=== PATIENT | female | born 1935 | race Caucasian/White ===

== ENCOUNTER 2017-04-15 12:58 | Inpatient (IN) ==
[2017-04-15 13:48] LABS: MANUAL DIFF NEEDED? NO
[2017-04-15 13:49] LABS: BASO% 0.4 % (0.0-0.8); EOS# 0.25 X1000 (0.0-0.7); EOS% 2.5 % (0.0-10.0); HEMATOCRIT 38.6 % (37.0-47.0); HEMOGLOBIN 12.3 g/dL (12.0-16.0); IMM GRAN# 0.02 X1000 (0.0-0.04); IMM GRAN% 0.2 % (0.0-0.5); LYMPH# 0.97 X1000 (1.2-3.4); LYMPH% 9.7 % (20.5-51.1); MCH 32.4 PG (27-31); MCHC 31.9 g/dL (33-37); MCV 101.6 FL (81-99); MONO# 0.82 X1000 (0.11-0.59); MONO% 8.2 % (1.7-9.3); MPV 10.2 FL (7.4-10.4); PLT 207 X1000 (130-400)
[2017-04-15 14:05] LABS: INR 1.03 (0.86-1.15); PROTIME 13.8 Seconds (12.1-15.5)
[2017-04-15 14:06] LABS: PTT PL 63.8 Seconds (22.6-43.9)
[2017-04-15 14:17] LABS: ALBUMIN 3.7 g/dL (3.5-5.0); TOTAL BILIRUBIN 0.4 mg/dL (0.20-1.00); TOTAL PROTEIN 6.6 g/dL (6.3-8.3)
[2017-04-15 14:24] LABS: POTASSIUM 7.4 mmol/L (3.5-5.1)
[2017-04-15 14:33] LABS: BE -1.5 mmoll (-3.0-3.0); BLOOD TYPE ARTERIAL; DRAW SITE R BRACHIAL; METHB 1.3 % (0.0-1.5); O2(CT) 16.4 mL/dL (15.0-23.0); PCO2(98.6) 50 mmHg (35-45); PO2(98.6) 93 mmHg (60-100); SAMPLE BLOOD; SAO2 98.7 % (95.0-100.0); THB 12.2 g/dL (11.5-17.4); pH(98.6) 7.31 (7.35-7.45)
[2017-04-15 14:45] LABS: ALLEN TEST NO; MODALITY CANNULA
[2017-04-16 06:29] LABS: MANUAL DIFF NEEDED? NO
[2017-04-16 06:46] LABS: CALCIUM 9.9 mg/dL (8.8-10.2); POTASSIUM 5.6 mmol/L (3.5-5.1)
[2017-04-16 07:07] LABS: BASO% 0.4 % (0.0-0.8); EOS% 3.2 % (0.0-10.0); HEMATOCRIT 41.1 % (37.0-47.0); IMM GRAN# 0.02 X1000 (0.0-0.04); IMM GRAN% 0.2 % (0.0-0.5); LYMPH# 0.94 X1000 (1.2-3.4); MCH 32.2 PG (27-31); MCHC 31.6 g/dL (33-37); MCV 101.7 FL (81-99); MONO# 0.86 X1000 (0.11-0.59); MONO% 9.2 % (1.7-9.3); MPV 10.4 FL (7.4-10.4); PLT 215 X1000 (130-400); RBC 4.04 XMIL (4.2-5.4)
[2017-04-16 07:15] LABS: VITAMIN D 25 HYDROXY 22.8 NG/DL
[2017-04-16 12:55] LABS: URINE CULTURE NEEDED? NO; URINE MICRO REVIEW NEEDED? NO; URINE SOURCE CLEAN CATCH
[2017-04-16 13:06] LABS: BILIRUBIN URINE NEGATIVE (NEGATIVE); BLOOD URINE NEGATIVE (NEGATIVE); COLOR YELLOW; GLUCOSE URINE NEGATIVE (NEGATIVE); LEUKOCYTES URINE NEGATIVE (NEGATIVE); NITRITE URINE NEGATIVE (NEGATIVE); PROTEIN URINE TRACE mg/dL (NEGATIVE); SP GRAVITY URINE 1.016; TURBIDITY URINE CLEAR (CLEAR); UROBILINOGEN URINE NORMAL (NORMAL)
[2017-04-16 13:07] LABS: UR EPITHELIAL CELLS <10 /HPF (<10); URINE BACTERIA NEGATIVE /HPF; URINE RBC <10 /HPF (<10); URINE WBC <10 /HPF (<10)
[2017-04-16 16:56] LABS: CALCIUM 8.9 mg/dL (8.8-10.2); POTASSIUM 5.3 mmol/L (3.5-5.1)
[2017-04-17 06:13] LABS: CALCIUM 8.7 mg/dL (8.8-10.2); POTASSIUM 4.9 mmol/L (3.5-5.1)
[2017-04-18 06:13] LABS: CALCIUM 9.3 mg/dL (8.8-10.2); POTASSIUM 4.3 mmol/L (3.5-5.1)
[2017-04-19 11:05] VITALS: BP 143/53
== END 2017-04-19 15:55 | disposition home health service (06) ==
LOC: 3N 12:58 → P.ED 12:58 → OBSVTOIN 15:30 → 3S 04-16 18:16
PROVIDERS: ADMIT Internal Medicine; ATTEND Internal Medicine

== ENCOUNTER 2020-02-15 16:03 | Inpatient (IN) ==
--- NOTE | 2020-02-15 16:39 | PROVIDER DOCUMENTATION ---
HPI-Musculoskeletal Pain/Inj - GENERAL Chief Complaint: Fall Stated Complaint: FALL Time Seen by Provider: 02/15/20 16:04 Source: patient - HX OF PRESENT ILLNESS-MUSKULOSKELTAL Nature of Presenting Problem: 84 yof presents after a fall while transfering to potty chair. She reports she slipped, she denies hitting her head, denies blood thinners. She c/o pain in the R leg from the knee to the ankle worse with pain. She does have BLE edema that is chronic. She has good sensation and cap refill to the R foot and pulses are intact. Quality of Pain: reports: aching Severity in ED: moderate Onset/Duration: 1-3 hours ago Timing: still present Modifying Factors: improves with: nothing Any recent injury?: Yes Locality of Occurance: Home Similar Symptoms Previously?: No Recently seen or treated by another doctor?: No - FALL INJURY Location of Pain/Injury: reports: lower extremity (RLE) Pain Radiation: reports: no radiation Reason for Fall: reports: slipped Symptoms prior to fall:: reports: none Loss of Consciousness: no loss of consciousness Injury Associated Symptoms: reports: denies symptoms Review of Systems - Adult - REVIEW OF SYSTEMS - ADULT Constitutional: reports: no symptoms reported. denies: chills, fever Eyes: reports: no symptoms reported. denies: decreased vision, blurred vision, double vision Ears, Nose, Mouth & Throat: reports: no symptoms reported. denies: sinus problem, mouth/dental pain Cardiovascular: reports: no symptoms reported. denies: chest pain, edema, orthopnea, palpitations, PND Respiratory: reports: no symptoms reported. denies: cough, shortness of breath, wheezing Gastrointestinal: reports: no symptoms reported. denies: abdominal pain, diarrhea, nausea, vomiting Genitourinary: reports: no symptoms reported. denies: dysuria, flank pain, hematuria Musculoskeletal: reports: see HPI, bone pain, joint pain. denies: no symptoms reported, back pain, frequent leg cramps, joint swelling, muscle aches, muscle weakness, neck pain, other Integumentary: reports: see HPI. denies: no symptoms reported, hives, hair loss, itching, mole changes, nail changes, rash, skin sores/ulcer, skin thickening, other Neurological: reports: no symptoms reported. denies: see HPI, ataxia, d izziness/vertigo, headache/migraines, loss of balance, numbness, paresthesia, seizure, slurred speech, syncope, tremors, other Psychiatric: reports: no symptoms reported. denies: see HPI, anxiety, anti- depressant use, alcohol/drug dependence, depression, emotional problems, insomnia, panic attacks, suicidal thoughts, other Endocrine: reports: no symptoms reported. denies: see HPI, change in skin pigment, excessive sweating, goiter, cold intolerance, heat intolerance, increased hunger, increased thirst, polyuria, other Hematologic/Lymphatic: reports: no symptoms reported. denies: see HPI, blood clots, easy bruising, low blood count, lymphedema, prolonged bleeding, swollen lymph nodes, transfusions, other Allergic/Immunologic: reports: no symptoms reported. denies: see HPI, allergic reactions, allergic rhinitis, asthma, eczema, food allergy, frequent infections, hay fever, hives, positive PPD, urticaria, other Past History - Adult - PAST MEDICAL HISTORY-ADULT Review of Records: reports: Nursing Assessment Review, Social history reviewed & non-contributory. 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 Endocrine/Immune: reports: anemia, Diabetes Other Conditions: reports: denies history - IMMUNIZATION STATUS Childhood Immunizations: See Nurse Assessment Flu Vaccine: See Nurse Assessment Physical Exam-Injury Related - Physical Exam-Injury Related Initial Vital Signs Reviewed: Yes General Appearance: alert, no apparent distress Eyes: PERRL/EOMI, pink conjunctivae Head, Ears, Nose, Mouth & Throat: normocephalic/atraumatic, moist mucous membranes, normal ENT inspection Neck: non-tender, full range of motion, supple, normal inspection Respiratory: chest non-tender, lungs clear, normal breath sounds, no pleuratic chest pain, no respiratory distress, no accessory muscle use Cardiovascular: normal peripheral pulses, regular rate, rhythm, systolic murmur. negative: no edema (BLE +1) Peripheral Pulses: radial (R): 2+, radial (L): 2+ Abdominal Exam: normal bowel sounds, non tender, soft, no organomegaly, no pulsatile mass Female Genitalia/Pelvic Exam: deferred Male Genitalia: deferred Rectal Exam: deferred Hemoccult Exam: deferred Lymphatic: no adenopathy Back Exam: normal inspection, no CVA tenderness, no vertebral tenderness Extremity: swelling (BLE), tenderness (R knee, ankle). negative: normal range of motion, normal gait, pulse deficit, slow capillary refill Integumentary: normal color, warm/dry Neurologic: grossly normal Psych/Mental Status: normal mood/affect, normal thought process, oriented x 3 - [place] Coma Score Best Eye Response ([place]): (4) open spontaneously Best Verbal Response ([place]): (5) oriented Best Motor Response ([place]): (6) obeys commands Progress - PLAN OF CARE/RESULTS Progress/Plan/Lab Results: Vital Signs - 8 hr 02/15/20 16:09 Temperature 97.7 F Pulse Rate 96 H Respiratory Rate 18 Blood Pressure 169/71 O2 Sat by Pulse Oximetry 93 L Orders Category Date Time Status Misc. NRSG Communication Order DIRECTED Care 02/15/20 17:58 Active NEWS Score 2-4:Order NEWS Lactate Series NOW Care 02/15/20 16:16 Active OCL Splint DIRECTED Care 02/15/20 17:58 Active ANKLE 2 VIEWS RIGHT [RAD] Stat Exams 02/15/20 16:[address] EXT LOWER RIGHT W/O CON [CT] Stat Exams 02/15/20 17:54 Ordered FOOT COMPLETE RIGHT [RAD] Stat Exams 02/15/20 16:31 Completed KNEE 3 VIEWS RIGHT [RAD] Stat Exams 02/15/20 16:31 Completed LOWER LEG-RIGHT [RAD] Stat Exams 02/15/20 16:31 Completed cxr [CHEST-1 VIEW] [RAD] Stat Exams 02/15/20 17:00 Completed CBC WITH ELECTRONIC DIFF [HEME] Stat Lab 02/15/20 17:47 Results COMPREHENSIVE METABOLIC PANEL [CHEM] Stat Lab 02/15/20 17:47 Received PROTIME WITH INR [COAG] Stat Lab 02/15/20 17:47 Received PTT [COAG] Stat Lab 02/15/20 17:47 Received TYPE & SCREEN [BBK] Stat Lab 02/15/20 17:47 Received Morphine Med 02/15/20 17:19 Discontinued 4 mg IM NOW ONE Promethazine [Phenergan] Med 02/15/20 17:19 Discontinued 25 mg IM NOW ONE Tramadol [Ultram] Med 02/15/20 16:42 Discontinued 50 mg PO NOW ONE EKG [EKG] Stat Ther 02/15/20 17:30 Ordered Result Diagrams: 02/15/20 17:47 - EKG 1 Time of EKG reading by physician:: 17:56 EKG Read and Signed by:: Deep Brumfield EKG Interpretation (*Must complete 3 of following elements*): Abnormal Rate: 96 Rhythm: NSR [place]: normal QRS: LVH, other (OAWMI) MI Interval: normal ST Wave: non-specific ST changes Comments: HEAVY ARTIFACT PRESENT - CONSULTS/PCP/HOSPITALIST Notification #1 *Consult/PCP/Hospitalist*: DR. ALVAREZ Time Discussed: 17:32 Consult Disposition: Admit (ADMIT TO PCP) #2 Consult: DR. HENRY ON FOR DR LOVETT Time Discussed: 18:02 Consult Disposition: Admit Departure - Departure Date of Disposition Decision: 02/15/20 Time of Disposition Decision: 18:02 DIAGNOSIS: Fracture of proximal end of tibia and fibula, Fracture of distal end of tibia with fibula Disposition: ADMITTED INPATIENT 09 Certified Medical Emergency: Emergent Condition: Stable Referrals and Follow-Ups: Phuc Boss MD [Primary Care Provider] - - Critical Care Note This patient required my direct & personal management of CC.: No Attestation - Physician/ LATRELL Attestation Patient care was provided by Advanced Practice Provider:: Yes Advanced Practice Provider:: Rosaura Hsu Advanced Practice Provider documentation review:: The Mid-level provider documentation, treatment plan and medical decision making was reviewed by the physician who agrees with all treatment and medical decision making by the P. The physician spent face to face time with patient:: No Advanced Practice Provider documentation review:: Supervising physician onsite and consulted in the evaluation and care of this patient. The physician did not have a face to face encounter with the patient.
[2020-02-15] MEDS ORDERED: ULTRAM PO ONE (16:42)
--- NOTE | 2020-02-15 17:12 | Diag Imaging Result Doc PS360 ---
KNEE 3 VIEWS RIGHT - 02/15/2020 INDICATION: fall TECHNIQUE: Three views COMPARISON: None FINDINGS: There is comminuted tibial plateau fracture. This appears as a split fracture at the tibial spine, along with transverse fracture of the tibial shaft. There is also nonspecific fracture of the fibular head. IMPRESSION: Severe fractures of the proximal tibia and fibula. Electronically signed by Luca Johnson 02/15/2020 5:09 PM
--- NOTE | 2020-02-15 17:13 | Diag Imaging Result Doc PS360 ---
ANKLE 2 VIEWS RIGHT - 02/15/2020 INDICATION: fall TECHNIQUE: COMPARISON: None FINDINGS: There is spiral nondisplaced fracture of the distal fibula with overlying soft tissue swelling. There is also a fracture line through the distal tibia metadiaphysis medially. This fracture is well above the medial malleolus. No widening of the ankle mortise. IMPRESSION: Distal tibia and fibular fractures. Electronically signed by Luca Johnson 02/15/2020 5:11 PM
--- NOTE | 2020-02-15 17:13 | Diag Imaging Result Doc PS360 ---
LOWER LEG-RIGHT - 02/15/2020 INDICATION: fall TECHNIQUE: Three views COMPARISON: None FINDINGS: The shafts of the tibia and fibula are intact. IMPRESSION: No midshaft fracture. Electronically signed by Luca Johnson 02/15/2020 5:10 PM
--- NOTE | 2020-02-15 17:14 | Diag Imaging Result Doc PS360 ---
FOOT COMPLETE RIGHT - 02/15/2020 INDICATION: Fall TECHNIQUE: Three views COMPARISON: None FINDINGS: No visible fractures of the foot. IMPRESSION: No fractures of the foot. Electronically signed by Luca Johnson 02/15/2020 5:12 PM
--- NOTE | 2020-02-15 17:16 | Diag Imaging Result Doc PS360 ---
CHEST-1 VIEW - 02/15/2020 INDICATION: FALL COMPARISON: 04/15/2017 FINDINGS: Stable sternotomy wires. Stable significant cardiomegaly. Pulmonary vascularity is grossly normal. No infiltrates or edema. There are probably trace pleural effusions. IMPRESSION: Nonspecific findings. Electronically signed by Luca Johnson 02/15/2020 5:14 PM
[2020-02-15] MEDS ORDERED: PHENERGAN IM ONE (17:19)
[2020-02-15] MEDS ORDERED: MORPHINE IM ONE (17:19)
[2020-02-15 18:06] LABS: BASO# 0.12 X1000 (0.0-0.2); EOS# 0.21 X1000 (0.0-0.7); EOS% 1.8 % (0.0-10.0); HEMATOCRIT 38.6 % (37.0-47.0); HEMOGLOBIN 12.4 g/dL (12.0-16.0); IMM GRAN# 0.03 X1000 (0.0-0.04); IMM GRAN% 0.3 % (0.0-0.5); LYMPH# 0.78 X1000 (1.2-3.4); LYMPH% 6.7 % (20.5-51.1); MCH 32.3 PG (27-31); MCHC 32.1 g/dL (33-37); MCV 100.5 FL (81-99); MONO# 0.89 X1000 (0.11-0.59); MONO% 7.6 % (1.7-9.3); MPV 10.3 FL (7.4-10.4); NEUT# 9.69 X1000 (1.4-6.5); NEUT% 82.6 % (42.2-75.2); PLT 188 X1000 (130-400); RBC 3.84 XMIL (4.2-5.4); RDW 14.5 % (11.5-14.5); WBC 11.72 X1000 (4.8-10.8)
[2020-02-15 18:14] LABS: INR 1.12; PROTIME 14.6 Seconds (11.0-16.0)
[2020-02-15 18:15] LABS: PTT 51.3 Seconds (22.3-41.8)
[2020-02-15 18:17] LABS: ALB/GLOB RATIO 2.2; ALBUMIN 4.4 g/dL (3.5-5.0); CALCIUM 10.3 mg/dL (8.8-10.2); CREATININE 1.9 mg/dL (0.5-0.9); POTASSIUM 3.3 mmol/L (3.5-5.1); TOTAL BILIRUBIN 0.68 mg/dL (0.20-1.00); TOTAL PROTEIN 6.4 g/dL (6.3-8.3)
[2020-02-15] MEDS ORDERED: FENTANYL IV ONE (18:45)
[2020-02-15] MEDS ORDERED: ZOFRAN IV ONE (18:45)
--- NOTE | 2020-02-15 19:16 | Diag Imaging Result Doc PS360 ---
CT EXT LOWER RIGHT W/O CON - 02/15/2020 INDICATION: Proximal and distal Tibia Fracture TECHNIQUE: CT of the right lower leg COMPARISON: None FINDINGS: There is a nondisplaced T-type split fracture of the proximal tibia. This includes a transverse fracture at the beginning of the tibia shaft along with a longitudinal fracture extending through the tibial spine. There is a nondisplaced fracture of the proximal fibular head. Distally, there is an oblique slightly comminuted fracture of the distal fibula. There is a fracture of the distal tibia at the syndesmosis area there is also comminuted fracture through the medial malleolus. IMPRESSION: Extensive fractures at both ends of the tibia and fibula. Electronically signed by Luca Johnson 02/15/2020 7:13 PM
[2020-02-15] MEDS ORDERED: NS 1,000 ML IV SCH (20:01)
--- NOTE | 2020-02-15 20:47 | EKG Report ---
Test Performed on : 02/15/2020 5:53:39 PM Test Reason : SURG CLEARANCE Blood Pressure : / mmHG Vent. Rate : 096 BPM Atrial Rate : 097 BPM P-R Int : 000 ms QRS Dur : 108 ms QT Int : 348 ms P-R-T Axes : 000 042 042 degrees QTc Int : 439 ms Accelerated Junctional rhythm. 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
--- NOTE | 2020-02-15 21:05 | HISTORY AND PHYSICAL ---
PRIMARY CARE PHYSICIAN: Phuc Boss MD CHIEF COMPLAINT: Right lower extremity pain. HISTORY OF PRESENT ILLNESS: An 84-year-old, white female with a complicated past medical history presents for evaluation of above-mentioned symptoms. Current history of present illness began this afternoon. The patient states she was lying in bed and rachel to transfer to her bedside commode. Upon doing so, patient lost balance and fell. The patient denied loss of consciousness or head trauma. The patient's found her on the floor. Patient complained of significant right lower extremity pain. Patient's attempted to assist her in rising to the bed; however, this proved unsuccessful. Ultimately, EMS was called. The patient was transferred to the emergency department for further evaluation and management. Full evaluation was pursued. The patient was found to have extensive fractures of both ends of the tibia and fibula. Patient will be admitted to the hospital for full evaluation and management of fractures as noted. Of note, prior to this event, patient had been in her usual state of health. She denied fevers, chills, nausea, vomiting, shortness of breath, chest discomfort, dysuria, hematuria, pyuria, or change in bowel movements. PAST MEDICAL HISTORY: 1. Non insulin-dependent diabetes with associated neuropathy. 2. Hyperlipidemia. 3. Hypertension. 4. History of tobacco use. 5. History of esophageal stricture secondary to reflux disease. 6. Coronary artery disease status post coronary artery bypass grafting. 7. Aortic insufficiency. 8. Mitral valve prolapse. 9. Folate deficiency. 10. B12 deficiency. 11. Chronic pain. 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 13. Chronic kidney disease. 14. Hypothyroidism. CURRENT MEDICATIONS: 1. Vitamin B12 1000 mcg IM monthly. 2. Lasix 20 mg daily. 3. Hydralazine 25 mg 3 times daily. 4. Sublingual nitroglycerin 0.4 mg as needed. 5. Oxycodone ER 10 mg q.12 hours. 6. Temazepam 30 mg at bedtime. 7. Acyclovir 400 mg twice daily. 8. Xanax 0.25 mg twice daily. 9. Tegretol 200 mg twice daily. 10. Famotidine 20 mg at bedtime. 11. Icar C 1 tab daily. 12. Imdur 60 mg daily. 13. Labetalol 150 mg twice daily. 14. Levothyroxine 75 mcg daily. 15. Multivitamin daily. 16. MiraLAX 17 g in 8 ounces of juice daily. 17. Sertraline 25 mg daily. 18. Simvastatin 40 mg at bedtime. ALLERGIES: Patient answered no known drug allergies. SOCIAL HISTORY: The patient is and lives with her . She is a former smoker. She denies alcohol or illicit drug use. She does use chronic pain medications as noted. FAMILY HISTORY: Patient's mother passed at age 66 secondary to complications of acute myocardial infarction. Patient's father passed in his 60s secondary to acute myocardial infarction. REVIEW OF SYSTEMS: A 12-point review of systems was performed. Pertinent positives and negatives are noted in history of present illness. PHYSICAL EXAMINATION: VITAL SIGNS: Temperature 97.8 degrees, heart rate 97, respirations 16 blood pressure is 151/61. GENERAL: Chronically ill appearing, no acute distress. HEENT: Normocephalic, atraumatic. Pupils equal, round, reactive to light. Extraocular muscles intact. Sclerae anicteric. [place] conjunctivae. Oral and nasopharynx clear without exudate. NECK: Supple. No lymphadenopathy. No thyromegaly. No bruits auscultated. CARDIOVASCULAR: Regular rate and rhythm. No significant rubs or gallops. A 3/6 systolic murmur noted at the right upper sternal border. PULMONARY: Clear to auscultation anteriorly. ABDOMEN: Soft, nontender, nondistended. Positive bowel sounds. EXTREMITIES: Moves left lower extremity well. Right lower extremity has a posterior splint. 1+ lower extremity edema on the left. No clubbing or cyanosis. NEUROLOGIC: Cranial nerves 2 through 12 are grossly intact. Motor and sensory grossly intact. PSYCHOLOGIC EXAMINATION: Appropriate. LABORATORY DATA: White blood cell count 11.72, hemoglobin 12.4, hematocrit 38.6, platelet count 88,000, PT 14.6, INR is 1.12, PTT is 51.3. Sodium 136, potassium 3.3, chloride 92, bicarb 30, BUN 41, creatinine 0.9, glucose 147, calcium 10.3, total bilirubin 0.68, total protein 6.4, albumin 4.4, alkaline phosphatase 87, AST 30, ALT 16. RADIOLOGIC DATA: CT scan of the right lower extremity revealed extensive fractures at both ends of the tibia and fibula. ASSESSMENT AND PLAN: An 84-year-old, white female with complicated past medical history as noted presents with significant right lower extremity pain. CT scan confirms multiple fractures. The patient will be admitted with orthopedic consultation for consideration of surgical management, surgical versus nonsurgical management. 1. Admit to [address] [place] [address]. 2. Multiple proximal and distal right tib-fib fractures--We will consult Dr. Baca. For now, patient will maintain in the posterior splint. Pain management will be pursued. Depending on his recommendations, we will consider surgical versus nonsurgical management. Regardless, I expect the patient will likely require rehabilitation at discharge. 3. Diabetes--Patient will be covered with sliding scale insulin. We will continue diabetic diet. 4. Hyperlipidemia--We will continue patient on home medical regimen. 5. Hypertension--The patient's blood pressure medications have been continued. We will hold diuretics. We will follow this. 6. Reflux disease--We will continue patient on Pepcid therapy. 7. Coronary artery disease--We will remain aware. We will continue patient's optimized medical and nonmedical management. 8. Chronic kidney disease--The patient's creatinine is at 1.9, apparently her baseline. We will follow this while hospitalized. 9. Hypothyroidism--We will continue patient on replacement. 10. Fluid, electrolytes and nutrition. We will monitor electrolytes. Normal saline at KVO. N.p.o. for now. 11. Prophylaxis. Depending on whether surgical intervention is warranted, we will start Lovenox therapy. cc: MD Phuc Neville MD
[2020-02-15] MEDS: HUMALOG SUBQ SCH (21:52)
[2020-02-15] MEDS: XANAX PO SCH (21:53)
[2020-02-15] MEDS: TEGRETOL PO SCH (21:53)
[2020-02-15] MEDS: ZOCOR PO SCH (21:53)
[2020-02-15] MEDS: ZOVIRAX PO SCH (21:53)
[2020-02-15] MEDS: PEPCID PO SCH (21:53)
[2020-02-15] MEDS: TRANDATE PO SCH (21:53)
[2020-02-15] MEDS: MORPHINE IV PRN (22:15)
[2020-02-15 22:41] LABS: URINE SOURCE CLEAN CATCH
[2020-02-15 22:47] LABS: BILIRUBIN URINE NEGATIVE (NEGATIVE); BLOOD URINE NEGATIVE (NEGATIVE); COLOR YELLOW; GLUCOSE URINE NEGATIVE (NEGATIVE); KETONE URINE NEGATIVE (NEGATIVE); LEUKOCYTES URINE NEGATIVE (NEGATIVE); NITRITE URINE NEGATIVE (NEGATIVE); PROTEIN URINE NEGATIVE (NEGATIVE); SP GRAVITY URINE 1.011; TURBIDITY URINE CLEAR (CLEAR); UR EPITHELIAL CELLS <10 /HPF (<10); URINE BACTERIA NEGATIVE /HPF; URINE RBC <10 /HPF (<10); URINE WBC <10 /HPF (<10); UROBILINOGEN URINE NORMAL (NORMAL)
[2020-02-15] MEDS ORDERED: LOVENOX SUBQ ONE (23:26)
--- NOTE | 2020-02-16 02:42 | ORTHOPAEDICS CONSULTATION ---
DATE: 02/15/2020 SERVICE: Orthopedic surgery. REQUESTING PHYSICIAN: Deep Brumfield MD, emergency room. REASON FOR CONSULTATION: Right tibia fracture. PAST MEDICAL HISTORY: 1. Diabetes. 2. Hyperlipidemia. 3. Hypertension. 4. Coronary artery disease. 5. Aortic insufficiency. 6. Mitral valve prolapse. 7. Chronic pain syndrome. 8. Chronic kidney disease. 9. Hypothyroidism. PAST SURGICAL HISTORY: Coronary artery bypass grafting. HOME MEDICATIONS: 1. Hydralazine. 2. Lasix. 3. Nitroglycerin. 4. Oxycodone extended release 10 mg b.i.d. 5. Temazepam. 6. Acyclovir. 7. Xanax. 8. Tegretol. 9. Famotidine. 10. ICar. 11. Imdur. 12. Labetalol. 13. Synthroid. 14. Multivitamin. 15. MiraLAX. 16. Sertraline. 17. Simvastatin. ALLERGIES: Patient reports allergy to latex. No known drug allergies. SOCIAL HISTORY: The patient is and lives in [place] with her . She is a former smoker, however, quit years ago. She is on chronic pain medication as well benzodiazepine. She states she does not get out of the house much, however, is able to ambulate around the house without any type of assistive device. She does not drive. FAMILY HISTORY: Noncontributory. REVIEW OF SYSTEMS: [place] review of systems complete and negative other than what is listed in his present illness. CHIEF COMPLAINT: Right leg pain. HISTORY OF PRESENT ILLNESS: Ms Ryan is an 83-year-old female who presents to [facility] after sustaining a same-level fall resulting in a tib-fib fracture. The patient states she was walking around her house into the kitchen when she slipped, falling on the right leg. She tried to get up and was unable to put much weight on the leg. She was thus taken to the ER, where x-rays were taken demonstrating a proximal tibia fracture as well as an ankle fracture on the right side. Given these findings, Orthopedic Surgery was thus consulted. The patient denies hitting her head or any loss of consciousness. She denies any pain in her left lower extremity or bilateral upper extremities. She denies any pain in her right leg prior to this fall. She has no other complaints. PHYSICAL EXAMINATION: General: Ms. Ryan is an 84-year-old female appears well nourished, well developed, no acute distress. She is awake, alert, oriented x3. She is very polite and cooperative during examination. Vital Signs: Temperature 98.1 degrees Fahrenheit, heart rate 87, respiratory rate 18, blood pressure 125/51, O2 saturations 98% on room air. HEENT: Normocephalic and atraumatic. Respiratory: Nonlabored breathing. Cardiovascular: Regular rate and rhythm. Extremities: The right lower extremity shows posterior slab splint to be intact in good repair going from her foot up to the mid thigh. No signs of skin irritation around the edges of the splint. The anterior aspect of the splint cast padding was cut down and compartments were visualized and palpated, found to be soft and compressible. She has tenderness to palpation around her proximal tibia as well as distally at her medial and lateral malleolus. She is nontender in her foot. She is nontender in her thigh. Toes are up and downgoing. She does have some neuropathy in bilateral feet with decreased sensation on the plantar surface of her feet bilaterally as well as the dorsal surface of the foot. She has brisk capillary refill x5. Her calf and leg compartments are soft and compressible. No pain with passive range of motion of the toes. LABS: White count is 12, hemoglobins 12, hematocrit 39, platelets 188,000. INR is 1.1. Sodium 136, potassium 3.3, CO2 is 30, BUN 41, creatinine is 1.9. Glucose 147. IMAGIN. AP and lateral of the right knee were obtained and reviewed, demonstrating a Schatzker 4 tibial plateau fracture with minimal displacement. There was very minimal step-off of the articular surface. Fractures near anatomically aligned. 2. AP and lateral of the leg were obtained and reviewed, demonstrating a proximal tibial plateau fracture, as mentioned above, as well as a distal fibular fracture with distal tibia fracture. 3. AP and lateral mortise views of the right ankle were reviewed demonstrating what appears to be a bimalleolar ankle fracture with no displacement of the medial malleolus. She does have some comminution of her lateral malleolus. However, the fracture is anatomically aligned. 4. AP, lateral, and oblique views of the right foot were obtained, demonstrating no obvious fractures or dislocations. 5. CT scan of the right lower extremity going from the knee down to the ankle was also reviewed, demonstrating a minimally displaced tibial plateau fracture involving medial tibial plateau, which is in good alignment in all views. She also has a nondisplaced proximal fibular head fracture as well as a comminuted but well-aligned distal fibula fracture, and a mildly comminuted and a nondisplaced distal tibia fracture that appears to involve the medial malleolus. ASSESSMENT: An 84-year-old female status post same-level fall with right nondisplaced tibial plateau fracture and right nondisplaced bimalleolar ankle fracture/distal tibia fracture. PLAN: Long discussion was had with patient regarding diagnosis and treatment options. She has a complex injury involving both proximal and distal aspects of the tibia. Luckily, both injuries of both fracture sites are relatively nondisplaced. I talked to her about both operative and nonoperative treatment for this. If we treated this nonoperatively, I think we would plan on placing her into a control motion brace locked in full extension as well as a short-leg cast for the ankle. She will be made nonweightbearing on the right lower extremity likely for 10 to 12 weeks total. Surgical intervention for this would involve open reduction internal fixation of her tibial plateau fracture. I think we would still plan on treating the ankle fracture nonoperatively in a splint or cast for immobilization. The benefit of surgical fixation would include being able to allow for early knee range of motion, which would prevent the need for a control motion brace, which could alleviate any risk of skin breakdown or irritation. However, the downside of surgery is that it would involve anesthesia as well as all the other complications that go along with surgery, including blood clot, stroke, heart attack, , infection, need for revision surgery. She is diabetic, which puts her at slightly increased risk for infection. The downside with nonoperative treatment is that it would require her to have prolonged placement in a controlled motion brace versus a long-leg cast, which could lead to skin irritation and breakdown. Given her overall medical comorbidities, her low-level of activity and the fact that her diabetes and the fact that surgical intervention will not allow her to bear weight on the leg any sooner than nonoperative treatment, I think we should attempt nonoperative treatment for this. 1. We will get her placed into a control motion brace locked in full extension for the first 4 to 6 weeks, until radiographic healing is appreciated. We also placed her into a short-leg splint with a U strap and transition this to a cast once I see her in clinic. She will need to be strict nonweightbearing on the right lower extremity. We will follow her closely in clinic to ensure no displacement of her fractures. I did discuss with her that if she does have subsequent displacement of her tibial plateau fracture this may force our hand to proceed with surgical intervention. She understands this. 2. Will start patient on Lovenox for DVT prophylaxis. 3. Appreciate hospitalist recommendations. 4. Patient disposition is per primary team. Patient will likely benefit from placement in a assisted facility to assist with mobilization and gait training without bearing weight on the right lower extremity. 5. Ice and elevate right lower extremity for pain. Thank you for the consultation. cc: Phuc Boss MD
[2020-02-16] MEDS: MORPHINE IV PRN ×3 (04:51→12:40)
[2020-02-16] MEDS: LOVENOX SUBQ SCH (06:21)
[2020-02-16 06:47] LABS: BASO# 0.05 X1000 (0.0-0.2); BASO% 0.7 % (0.0-0.8); EOS# 0.21 X1000 (0.0-0.7); EOS% 2.9 % (0.0-10.0); HEMATOCRIT 35.2 % (37.0-47.0); HEMOGLOBIN 11.3 g/dL (12.0-16.0); LYMPH# 0.69 X1000 (1.2-3.4); LYMPH% 9.4 % (20.5-51.1); MCH 32.5 PG (27-31); MCHC 32.1 g/dL (33-37); MCV 101.1 FL (81-99); MONO# 0.77 X1000 (0.11-0.59); MONO% 10.5 % (1.7-9.3); MPV 10.7 FL (7.4-10.4); NEUT# 5.62 X1000 (1.4-6.5); NEUT% 76.5 % (42.2-75.2); PLT 170 X1000 (130-400); RBC 3.48 XMIL (4.2-5.4); RDW 14.4 % (11.5-14.5); WBC 7.34 X1000 (4.8-10.8)
[2020-02-16] MEDS: HUMALOG SUBQ SCH ×4 (07:13→22:58)
[2020-02-16 07:15] LABS: ALB/GLOB RATIO 1.5; ALBUMIN 3.5 g/dL (3.5-5.0); CALCIUM 9.6 mg/dL (8.8-10.2); CREATININE 1.8 mg/dL (0.5-0.9); POTASSIUM 3.5 mmol/L (3.5-5.1); TOTAL BILIRUBIN 0.7 mg/dL (0.20-1.00); TOTAL PROTEIN 5.8 g/dL (6.3-8.3)
[2020-02-16] MEDS: ZOFRAN IV PRN ×2 (09:00→12:41)
[2020-02-16] MEDS: MIRALAX PO SCH (09:03)
[2020-02-16] MEDS: TRANDATE PO SCH ×2 (09:03→22:59)
[2020-02-16] MEDS: ICAR-C PO SCH (09:03)
[2020-02-16] MEDS: IMDUR PO SCH (09:03)
[2020-02-16] MEDS: SYNTHROID PO SCH (09:04)
[2020-02-16] MEDS: TEGRETOL PO SCH ×2 (09:04→22:59)
[2020-02-16] MEDS: ZOVIRAX PO SCH ×2 (09:04→23:00)
[2020-02-16] MEDS: ZOLOFT PO SCH (09:04)
[2020-02-16] MEDS: THERA M PLUS PO SCH (09:05)
[2020-02-16] MEDS: XANAX PO SCH ×2 (09:05→23:01)
--- NOTE | 2020-02-16 11:57 | ORTHOPAEDICS PROGRESS NOTE ---
DATE: 02/16/2020 SUBJECTIVE: No acute events overnight. Patient is doing well. She reports minimal pain in the right lower extremity. She has been tolerating a diet. OBJECTIVE: Vital Signs: Afebrile. Vital signs stable. Extremities: Examination of right lower extremity shows skin to be intact. Thigh and calf are soft and compressible. No pain with passive range of motion of the toes. No sign of acute compartment syndrome. Tender to palpation around the proximal tibia as well as distal tibia and ankle. Toes are grossly up and downgoing. She has baseline neuropathy in bilateral feet, however, does have some sensation on the dorsal aspect of the foot. Brisk capillary refill x5. LABORATORY DATA: Hematocrit is 35. ASSESSMENT: An 84-year-old female with a right nondisplaced medial tibial plateau fracture and right bimalleolar ankle fracture that is also nondisplaced. PLAN: 1. A long discussion was again had with the patient regarding diagnosis and treatment options. After reviewing her scans again as well as her medical history, I think we should attempt nonoperative treatment on this. I think if her fractures heal where they currently are, then she should have a good outcome. Regardless of whether we operate or not, her weightbearing status is going to be the same, so it will not really help her with mobilization. We will plan on following her closely in clinic and if she does develop any displacement of her tibial plateau fracture over the next couple of weeks, this may push our hand to proceed with surgical intervention. We will place the patient into a well-padded short-leg splint with a U strap for her ankle fracture. We will then place her into a knee immobilizer for the tibial plateau fracture. I will plan on keeping her in the knee immobilizer with the leg locked straight in extension for about 4 to 6 weeks. We will transition her to a controlled motion brace in clinic. In regards to the ankle, we will also plan on keeping her casted for about 4 weeks and then transition her to a boot. 2. Patient to follow up with me in clinic in 2 weeks with repeat x-rays. 3. Lovenox deep venous thrombosis prophylaxis. The patient will need long-term chemical deep venous thrombosis prophylaxis given the fact that she will be nonweightbearing on this extremity for likely 2-1/2 to 3 months total. 4. Appreciate hospitalist recommendations. 5. Ice and elevate right lower extremity for pain. 6. Disposition per primary team. Patient likely benefit from placement in [facility]. cc: Phuc Boss MD
--- NOTE | 2020-02-16 17:32 | PROGRESS NOTE ---
DATE: 02/16/2020 SUBJECTIVE: Overnight, the patient states she did reasonably well. Her pain has been adequately controlled. A long discussion was held with Dr. Baca. Nonsurgical intervention was felt most appropriate. This morning, with the exception of mild confusion, the patient is doing well. She has had no evidence of fevers, chills, nausea, vomiting, shortness of breath, or chest discomfort overnight. OBJECTIVE: vital signs: T-max 98.5 degrees, heart rate 78 to 97, respirations 14 to 20, blood pressure 108 to 139 over 34 to 67. General: No acute distress. Cardiovascular: Regular rate and rhythm. No significant murmurs, rubs, or gallops. Pulmonary: Clear to auscultation anteriorly. Abdomen: Soft, nontender, nondistended. Positive bowel sounds. Extremities: Right lower extremity with a posterior splint. Left lower extremity with no clubbing or cyanosis. There is 1+ lower extremity edema. Dermatologic: Evaluation reveals no evidence of rash. LABORATORY DATA: White blood cell count 7.34, hemoglobin 11.3, hematocrit 35.2, platelet count 170,000. Sodium 134, potassium 3.5, chloride 93, bicarb 28, BUN 36, creatinine 1.8, glucose 132, calcium 9.6, total bilirubin 0.70, total protein 5.8, albumin 3.5, alkaline phosphatase 72, AST 30, ALT 13. ASSESSMENT AND PLAN: 1. Multiple proximal and distal right tibia-fibula fractures - I appreciate Dr. Baca's consultation. At this point, the patient will be managed nonsurgically. We will defer physical therapy recommendations per Dr. Baca's discretion. We will continue pain control and encourage activity as tolerated. We will plan transfer to rehabilitation once appropriate. 2. Diabetes - The patient is being treated with diabetic diet and sliding scale insulin. This will be continued. 3. Hyperlipidemia - We will continue the patient's home medical regimen. 4. Hypertension - The patient's blood pressure is reasonably controlled. We will continue to hold the patient's diuretic. However, we will likely resume this in the morning. 5. Reflux disease - The patient is treated with Pepcid therapy. Symptoms are controlled. 6. Coronary artery disease - The patient has longstanding disease. She is treated with optimized medical and nonmedical management. She denies cardiac symptoms currently. 7. Chronic kidney disease - The patient's creatinine is reasonably stable at 0.8. We will encourage oral hydration. We will hold IV fluids as described below. 8. Hypothyroidism - We will continue the patient on replacement. 9. Mild volume overload - The patient's left lower extremity has 1+ edema. We will hold further IV fluids. Depending on the patient's progress, we will resume her home diuretic regimen. DISPOSITION: At this point, the patient continues to require group home care in a hospital setting. We will plan discharge to rehabilitation once appropriate. cc: MD Phuc Neville MD
[2020-02-16] MEDS: PEPCID PO SCH (22:59)
[2020-02-16] MEDS: ZOCOR PO SCH (22:59)
[2020-02-17] MEDS: LOVENOX SUBQ SCH (06:24)
[2020-02-17] MEDS: HUMALOG SUBQ SCH ×4 (06:50→22:23)
[2020-02-17] MEDS: SYNTHROID PO SCH (09:18)
[2020-02-17] MEDS: ICAR-C PO SCH (09:19)
[2020-02-17] MEDS: ZOLOFT PO SCH (09:19)
[2020-02-17] MEDS: ZOVIRAX PO SCH ×2 (09:19→22:25)
[2020-02-17] MEDS: MIRALAX PO SCH (09:19)
[2020-02-17] MEDS: TRANDATE PO SCH ×2 (09:19→22:24)
[2020-02-17] MEDS: TEGRETOL PO SCH ×2 (09:19→22:25)
[2020-02-17] MEDS: IMDUR PO SCH (09:19)
[2020-02-17] MEDS: THERA M PLUS PO SCH (09:19)
[2020-02-17] MEDS: XANAX PO SCH ×2 (09:25→22:26)
--- NOTE | 2020-02-17 11:17 | ORTHOPAEDICS PROGRESS NOTE ---
DATE: 02/17/2020 Subjective no acute events overnight. Patient has some mild confusion this morning. Nurse reports she is having decreased urinary output and recently had a bladder scan only showing about 180 mL residual. In regard to her legs, she states pain is controlled. She was placed into a short-leg splint with a knee immobilizer yesterday. No other complaints. OBJECTIVE: Vital Signs: Afebrile. Vital signs stable. Extremities: Examination of right lower extremity shows knee immobilizer and short-leg splint to be intact and in good repair. Toes are up and downgoing. Brisk capillary refill in her toes. Calf and leg compartments are soft and compressible. No signs of skin breakdown around the edges of the knee immobilizer or cast. ASSESSMENT: An 84-year-old female with right nondisplaced tibial plateau fracture and nondisplaced distal tibia and lateral malleolus ankle fracture. PLAN: 1. We will plan on treating her fractures nonoperatively with close follow up in the office to ensure no displacement. She states she is currently comfortable in the splint with knee immobilizer. She will need to keep the knee immobilizer on with the knee locked straight in extension for about 4 to 6 weeks. We will then start working on some knee range of motion. Her weightbearing status should be strict nonweightbearing to the right lower extremity. Physical therapy consult was put in to work on [id number] transfers and mobilizing while remaining nonweightbearing right lower extremity. 2. Ice to right leg and hip for pain. 3. Lovenox DVT prophylaxis. 4. Appreciate hospitalist's recommendations. 5. Disposition per primary team. Patient likely benefit from discharge to [facility] facility. She is going to have a hard time mobilizing and getting around. She can follow up with me in clinic in 2 weeks with repeat x-rays of the right lower extremity. cc: Phuc Boss MD
[2020-02-17] MEDS: NORCO-7.5 PO PRN (17:43)
--- NOTE | 2020-02-17 18:29 | PROGRESS NOTE ---
DATE: 02/17/2020 SUBJECTIVE: Upon my arrival, patient was sitting in bed eating lunch. Overall, pain was reasonably controlled. She does demonstrate some confusion which, I understand, is baseline. She denies fevers, chills, nausea, vomiting, or shortness of breath. Physical therapy was initiated yesterday. OBJECTIVE: T-max 98.5 degrees, heart rate 73 to 89, respirations 16 to 20, blood pressure 97 to 159 over 44 to 82.General: Chronically ill appearing, no acute distress. Cardiovascular: Regular rate and rhythm. No significant murmurs, rubs, or gallops. Pulmonary: Clear to auscultation anteriorly. Abdomen: Soft, nontender, nondistended. Positive bowel sounds. Extremities: Moves left lower extremity well. 1+ edema. Right lower extremity is braced and dressed. Dermatologic: Evaluation reveals no evidence of rash. LABORATORY DATA: None. ASSESSMENT AND PLAN: 1. Multiple proximal and distal right tibia/fibula fractures-appreciate Dr. Baca's guidance. At this point, patient is being treated nonsurgically. Close monitoring will be warranted to confirm adequate healing. Pain is reasonably controlled. Physical therapy, as noted above, has been initiated. We will transition patient to her baseline OxyContin. We will add as- needed [place]. We will discontinue morphine. Patient likely will require rehabilitation at discharge as she is unable to transfer at present time. 2. Hypoxia-overnight, patient was noted to have hypoxia after receiving morphine. We will discontinue this. She is being treated with oxygen per protocol. I stressed the importance of aspiration precautions and incentive spirometry. 3. Diabetes-patient is being treated with a diabetic diet and sliding scale insulin. Blood sugars are reasonably controlled. 4. Hyperlipidemia. Patient is treated with simvastatin therapy. This will be continued. 5. Hypertension-patient continues to have significant lability. She is being treated with Imdur and labetalol per her home medical regimen. Diuretics have been held secondary to hypotension and volume depletion. We will plan to resume these once able. 6. Reflux disease-we will continue patient on aspiration precautions and Pepcid therapy. 7. Coronary artery disease-patient has significant disease. She is treated with optimized medical and nonmedical management. She denies current symptoms. 8. Chronic kidney disease-creatinine yesterday was 1.8, her baseline. We will continue to encourage hydration. 9. Hypothyroidism-we will continue patient on replacement. 10. Lower extremity edema-patient has 1+ lower extremity edema on the left. Because of her labile blood pressure, I am hesitant to resume diuretic therapy. We will follow this. 11. Disposition. At this point, patient continues to require halfway care in a hospital setting. She will likely require rehabilitation at discharge. cc: MD Phuc Neville MD
[2020-02-17] MEDS: ZOCOR PO SCH (22:24)
[2020-02-17] MEDS: RESTORIL PO SCH (22:24)
[2020-02-17] MEDS: PEPCID PO SCH (22:24)
[2020-02-17] MEDS: OXYCONTIN PO SCH (22:25)
[2020-02-17] MEDS: XALATAN 0.005% OPH SOLN OPH SCH (22:26)
[2020-02-18 02:08] LABS: URINE SOURCE CATH
[2020-02-18 02:36] LABS: BILIRUBIN URINE NEGATIVE (NEGATIVE); BLOOD URINE NEGATIVE (NEGATIVE); COLOR YELLOW; GLUCOSE URINE NEGATIVE (NEGATIVE); KETONE URINE NEGATIVE (NEGATIVE); LEUKOCYTES URINE TRACE (NEGATIVE); NITRITE URINE NEGATIVE (NEGATIVE); PH URINE 5.5; PROTEIN URINE TRACE mg/dL (NEGATIVE); TURBIDITY URINE CLEAR (CLEAR); UROBILINOGEN URINE NORMAL (NORMAL)
[2020-02-18 02:41] LABS: UR EPITHELIAL CELLS <10 /HPF (<10); URINE BACTERIA NEGATIVE /HPF; URINE RBC <10 /HPF (<10); URINE WBC <10 /HPF (<10)
[2020-02-18 02:42] LABS: URINE YEAST PRESENT
[2020-02-18 02:43] LABS: URINE CASTS NONE SEEN; URINE CRYSTALS NONE SEEN; URINE SMALL ROUND CELLS NONE SEEN
[2020-02-18] MEDS: LOVENOX SUBQ SCH (06:54)
[2020-02-18] MEDS: HUMALOG SUBQ SCH ×4 (06:57→20:46)
[2020-02-18] MEDS: XANAX PO SCH ×2 (09:40→20:41)
[2020-02-18] MEDS: OXYCONTIN PO SCH ×2 (09:40→20:41)
[2020-02-18] MEDS: ICAR-C PO SCH (09:41)
[2020-02-18] MEDS: MIRALAX PO SCH (09:41)
[2020-02-18] MEDS: TEGRETOL PO SCH ×2 (09:42→20:41)
[2020-02-18] MEDS: SYNTHROID PO SCH (09:42)
[2020-02-18] MEDS: THERA M PLUS PO SCH (09:42)
[2020-02-18] MEDS: IMDUR PO SCH (09:42)
[2020-02-18] MEDS: TRANDATE PO SCH ×2 (09:42→20:40)
[2020-02-18] MEDS: ZOVIRAX PO SCH ×2 (09:42→20:41)
[2020-02-18] MEDS: ZOLOFT PO SCH (09:42)
[2020-02-18] MEDS: DIFLUCAN PO SCH (09:55)
--- NOTE | 2020-02-18 15:53 | EKG Report ---
Test Performed on : 02/18/2020 12:45:06 PM Test Reason : ADMISSION Blood Pressure : / mmHG Vent. Rate : 076 BPM Atrial Rate : 076 BPM P-R Int : 212 ms QRS Dur : 110 ms QT Int : 454 ms P-R-T Axes : 072 088 -55 degrees QTc Int : 510 ms Sinus rhythm. with 1st degree AV block. Septal infarct (cited on or before 18-MAY-2015) Prolonged QT Abnormal ECG When compared with ECG of 15-FEB-2020 17:53, (Unconfirmed) Sinus rhythm. has replaced Junctional rhythm. Questionable change in initial forces of Septal leads QT has lengthened Confirmed by Abida WAGNER, Tommie Schroeder ([id number]) on 02/19/2020 9:25:38 AM
--- NOTE | 2020-02-18 18:35 | ORTHOPAEDICS PROGRESS NOTE ---
DATE: 02/18/2020 SUBJECTIVE: No acute events overnight. The patient states her pain is controlled. She is tolerating a diet. OBJECTIVE: Afebrile. Vital signs stable. Extremity Examination: Right lower extremity shows knee immobilizer and the short-leg splint to be clean, dry, intact. Toes are up and downgoing. No pain with passive range of motion of her toes. Calf and thigh compartments are soft and compressible. No signs of acute compartment syndrome. Brisk capillary refill in all toes. She has baseline neuropathy in bilateral feet; however, is able to feel the dorsal aspect of her foot. ASSESSMENT: An 84-year-old female with a right nondisplaced tibial plateau fracture and bimalleolar ankle fracture. PLAN: 1. We will still plan on nonoperative treatment for these fractures. She should be strict nonweightbearing to the right lower extremity. She needs to have her knee locked in extension for about 4 to 6 weeks. Float her heels at all times. 2. Lovenox DVT prophylaxis. Patient will need likely 8 to 10 weeks of chemical DVT prophylaxis given the fact she will be nonweightbearing for that long. 3. I appreciate hospitalist recommendations. 4. Ice and elevate the right lower extremity for pain. 5. Disposition is per primary team. Patient is planning on being discharged to inpatient rehab when a bed is available. I will plan on seeing her in clinic in 2 weeks after discharge for x- rays to ensure no interval displacement of her fractures. cc: Phuc Boss MD
[2020-02-18] MEDS: PEPCID PO SCH (20:40)
[2020-02-18] MEDS: XALATAN 0.005% OPH SOLN OPH SCH (20:41)
[2020-02-18] MEDS: RESTORIL PO SCH (20:41)
[2020-02-19] MEDS: LOVENOX SUBQ SCH (05:32)
[2020-02-19] MEDS: HUMALOG SUBQ SCH ×4 (06:45→22:03)
--- NOTE | 2020-02-19 08:54 | PROGRESS NOTE ---
DATE: 02/19/2020 SUBJECTIVE: The patient is not really terribly with it this morning. 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 She did recognize me but really did not take heed of what I was saying. She is hard of hearing as well. The patient's history was reviewed. OBJECTIVE: Vital Signs: 98.4, 70, 16, 150/40. Physical Examination: The patient is awake and alert. Her orientation is very questionable. The patient's lungs are clear. Cardiovascular: Regular with a 3/6 systolic murmur which is old. The patient's right leg is in a knee immobilizer with what appears to be a sugar-tong splint on the right ankle. Laboratory: There were no labs drawn today. ASSESSMENT AND PLAN: 1. The patient's fractures have been deemed nonsurgical. The physical therapy notes indicate relative noncompliance with her demands to try to move. She was strongly encouraged to participate. I am not sure if that registered with her or not. She will require a rehabilitation stay. Her is not capable of lifting her and although she claimed to be independent with her activities of daily living, I have never seen her out of a wheelchair in the last 3 years in the office and I suspect that her mobility at home is minimal anyway and will be much less in the face of an acute trauma to her right lower extremity. 2. No other reported hypoxemia. 3. The patient's diabetes is reasonably well-controlled. 4. Hyperlipidemia. Aware. 5. Hypertension. The patient's blood pressure has always been fairly labile. She also has a wide pulse pressure due to her heart valve disease. We have made no change in her basic medications other than holding the diuretics. 6. Gastroesophageal reflux disease. 7. Coronary artery disease and valvular disease. We are aware of this. 8. Hypothyroidism, stable. 9. As stated earlier, the patient will require a disposition to inpatient rehabilitation. I will contact the patient's to confirm these details. I would encourage social work to do this as well as the patient herself is unreliable in historical or factual abilities. cc: Phuc Boss MD
[2020-02-19] MEDS: XANAX PO SCH ×2 (11:07→21:02)
[2020-02-19] MEDS: ICAR-C PO SCH (11:07)
[2020-02-19] MEDS: IMDUR PO SCH (11:07)
[2020-02-19] MEDS: TEGRETOL PO SCH ×2 (11:07→21:02)
[2020-02-19] MEDS: MIRALAX PO SCH (11:07)
[2020-02-19] MEDS: ZOLOFT PO SCH (11:07)
[2020-02-19] MEDS: OXYCONTIN PO SCH ×2 (11:07→21:05)
[2020-02-19] MEDS: SYNTHROID PO SCH (11:08)
[2020-02-19] MEDS: DIFLUCAN PO SCH (11:08)
[2020-02-19] MEDS: TRANDATE PO SCH ×2 (11:08→21:02)
[2020-02-19] MEDS: ZOVIRAX PO SCH ×2 (11:08→21:02)
[2020-02-19] MEDS: THERA M PLUS PO SCH (11:08)
[2020-02-19] MEDS: NORCO-7.5 PO PRN (14:44)
--- NOTE | 2020-02-19 18:14 | ORTHOPAEDICS PROGRESS NOTE ---
DATE: 02/19/2020 SUBJECTIVE: No acute events overnight. Patient has had some baseline dementia. She is pleasant during conversation. Physical therapy has attempted to work with her, however, she has been reluctant to participate. She did work with sitting up in bed and some range of motion type activities today. No other complaints. OBJECTIVE: Vital Signs: Afebrile. Vital signs stable. Extremities: Right lower extremity shows knee immobilizer and short-leg splint to be clean, dry, intact. No signs of skin breakdown around splint edges. Toes are up and downgoing. Thigh and calf are soft and compressible. Grossly neurovascularly intact. ASSESSMENT: An 84-year-old female, medial tibial plateau fracture as well as bimalleolar ankle fracture. PLAN: 1. We will continue nonoperative treatment for this. The patient is planning on being discharged to [facility] facility. Physical therapy to continue to work with her. Strict nonweightbearing to the right lower extremity. 2. Appreciate hospitalist recommendations. 3. Ice right lower extremity as needed for pain. 4. Float heel at all times. 5. Lovenox deep venous thrombosis prophylaxis. Patient will need long-term anticoagulation given the fact she will be nonweightbearing for 10 to 12 weeks. 6. Disposition is per primary team. Patient is planning on being discharged to [facility] once bed available. She will follow up with me in clinic in 2 weeks. cc: Phuc Boss MD
[2020-02-19] MEDS: XALATAN 0.005% OPH SOLN OPH SCH (21:02)
[2020-02-19] MEDS: RESTORIL PO SCH (21:02)
[2020-02-19] MEDS: PEPCID PO SCH (21:02)
[2020-02-20] MEDS: LOVENOX SUBQ SCH (06:27)
[2020-02-20] MEDS: HUMALOG SUBQ SCH ×2 (06:53→11:25)
--- NOTE | 2020-02-20 08:21 | PROGRESS NOTE ---
DATE: 02/20/2020 SUBJECTIVE: The patient is lying in bed. She is a little bit more with it this morning. She was able to call me by name, but then proceeded to ask me 4 times in a row, "do you think I will get better." OBJECTIVE: Vital Signs: Temperature 98.5, pulse 72, respirations 15, blood pressure 130/52, saturating 93% on room air. She has a nasal cannula, but is not wearing it. General: The patient is awake and alert. Her orientation is at baseline. Lungs: Clear. Cardiovascular: Regular with a somewhat harsh systolic ejection murmur, which is again baseline. Extremities: Her right leg is in a knee immobilizer, with a short-leg splint on the right side. ASSESSMENT AND PLAN: 1. The patient's leg fracture is being treated nonsurgically. Physical Therapy notes indicate that she is not participating well, even though she has been encouraged to do so on multiple occasions. I spoke with the patient's yesterday, who agreed that she will have to go to rehab. He has chosen [facility] for that endeavor. Notes indicate that she has been accepted for transfer to [facility] upon discharge. I really do not see anything pressing keeping her in the hospital right now. Orthopedic notes indicate strict nonweightbearing of the right lower extremity. 2. Hypertension seems a bit better controlled today. I am going to try and get her back on most of her home regimen with the exception of the diuretics. 3. Diabetes is reasonably well controlled. 4. The patient continues on her hyperlipidemic regimen without difficulty. 5. Gastroesophageal reflux disease. Aware. 6. Coronary and valvular disease. We are aware of this. 7. Hypothyroidism. Aware. 8. Baseline dementia. This has not really changed during her hospitalization. 9. I am going to contact Social Work, and see if she is available for transfer at the present time. cc: Phuc Boss MD
[2020-02-20] MEDS ORDERED: APRESOLINE PO SCH (09:00)
[2020-02-20] MEDS: THERA M PLUS PO SCH (09:35)
[2020-02-20] MEDS: TRANDATE PO SCH (09:35)
[2020-02-20] MEDS: DIFLUCAN PO SCH (09:35)
[2020-02-20] MEDS: SYNTHROID PO SCH (09:35)
[2020-02-20] MEDS: XANAX PO SCH (09:35)
[2020-02-20] MEDS: OXYCONTIN PO SCH (09:35)
[2020-02-20] MEDS: ZOLOFT PO SCH (09:35)
[2020-02-20] MEDS: ZOVIRAX PO SCH (09:35)
[2020-02-20] MEDS: TEGRETOL PO SCH (09:35)
[2020-02-20] MEDS: IMDUR PO SCH (09:35)
[2020-02-20] MEDS: MIRALAX PO SCH (09:35)
[2020-02-20] MEDS: ICAR-C PO SCH (09:35)
[2020-02-20 11:14] VITALS: BP 123/43
[2020-02-20] MEDS ORDERED: SEPTRA DS PO SCH (12:00)
--- NOTE | 2020-02-20 12:47 | DISCHARGE SUMMARY ---
ADMISSION DATE: 02/15/2020 DISCHARGE DATE: 02/20/2020 DISCHARGE DIAGNOSES: 1. Fracture of the distal tibia and fibula. 2. Tibial plateau fracture. 3. Insulin-dependent diabetes mellitus. 4. Chronic renal insufficiency. 5. Chronic bradycardia. 6. Mild dementia. 7. Candidal vaginitis. 8. Hypothyroidism. 9. Hypertension. 10. Gastroesophageal reflux disease. 11. Coronary artery disease with bypass grafting. 12. Aortic insufficiency. 13. Chronic pain. CONSULTATIONS: Dennis Baca MD HOSPITAL COURSE: An 84-year-old white female has a very complex medical history. She fell suffering a fracture of her right tibia and fibula distally constituting a bimalleolar fracture as well as tibial plateau fracture. All these elements were well aligned and due to the complexity of her medical history as well as the reasonable alignment, no surgeries were undertaken by Dr. Baca after consultation. The bimalleolar fracture was splinted and wrapped and a knee immobilizer was put on the patient. She has baseline mild dementia and her sensorium was generally at baseline throughout the hospitalization. She has chronic pain, and we did not increase these pain medications due to her fracture. The patient has a extensive cardiac history, but essentially is a nonsurgical candidate at this point. She also has chronic diabetic neuropathy and although was on large insulin doses in the past, does relatively well with small doses at the present time. During the hospitalization, the patient's urine grew back gram-positive cocci but was in an insignificant colony count. This was presumed to be MRSA, although I did not get a confirmed report at the time of this dictation. I put her on some Septra DS once a day for about 5 days. Hopefully, we can get confirmation. The patient has rather labile hypertension. Some of her medications were held during her hospitalization. In particular, since she was immobilized, we removed the diuretics from her regimen which included Lasix 20 mg and spironolactone/hydrochlorothiazide once a day. Because the patient is being treated with Septra, we continued to hold the spironolactone during that treatment phase. Hopefully the diuretics can be reinstituted as her mobility improves. The patient lives with her , but because she would require relatively total care, the option was pursued along the lines of any inpatient rehabilitation. This will be a relatively long rehabilitation for her, and the patient and her are reasonably made aware of this. cc: Phuc Boss MD
== END 2020-02-20 13:41 | DRG 563 ==
LOC: SUPCPDRO → ED 16:03 → 4N 19:22
PROVIDERS: ADMIT Internal Medicine; ATTEND Internal Medicine